=== PATIENT | female | born 1975 | race Caucasian/White ===

== ENCOUNTER → 2017-02-01 | Outpatient (CLI) | payer BC ==
[~2017-02-01] MED LIST: CITA20TA4 PO; GLC/500 PO; HYDR-4079 PO; HYDR1CAP85 PO; LOSA1TAB PO; NXM/40 PO; ONDA4TAB10 SL
[2017-02-03 00:33] LABS: URCREATININE 116.3 MG/DL (>/= 20)
== END | disposition home or self-care (01) ==
LOC: C.LABPBG 15:49
PROVIDERS: ATTEND Family Medicine
DX: Z51.81 Encounter for therapeutic drug level monitoring (principal); Z79.899 Other long term (current) drug therapy

== ENCOUNTER 2017-05-06 12:38 | Emergency (ER) | payer BC ==
[~2017-05-06] VITALS: Ht 167.6 cm; Wt 105.8 kg
[~2017-05-06 12:38] MED LIST changes: -HYDR1CAP85 PO; -ONDA4TAB10 SL
[2017-05-06 12:40] VITALS: TEMP 36.8; Ht 167.6 cm; Wt 105.8 kg
[2017-05-06] MEDS ORDERED: SODIUM CHLORIDE 0.9% 1000ML 1,000 ML IV STA (12:53)
[2017-05-06] MEDS ORDERED: ONDANSETRON INJ 2 MG/ML 2 ML VIAL IV STA (12:58)
[2017-05-06] MEDS ORDERED: KETOROLAC TROMETHAMINE 30 MG/ML VIAL IV STA (13:00)
[2017-05-06] MEDS ORDERED: hydrOXYzine HCL 25 MG TAB PO STA (13:11)
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
[2017-05-06 13:34] LABS: BASO % 0.4 %; BASO ABS # 0.05 K/uL (0-0.2); EOS % 0.8 %; HEMATOCRIT 41.1 % (37-47); IG% 0.2 %; LYMPH % 21.1 %; LYMPH ABS # 2.53 K/uL (1.2-3.4); MEAN CELL VOLUME 72.7 fL (80-100); MEAN CORPUSCULAR HEMOGLOBIN 22.3 pg (25-34); MEAN CORPUSCULAR HGB CONC 30.7 g/dl (32-36); MEAN PLATELET VOLUME 8.9 fL (7.4-10.4); MONO % 3.5 %; PLATELET COUNT 510 K/uL (130-400); RED BLOOD COUNT 5.65 M/uL (4.2-5.4); WHITE BLOOD COUNT 11.99 K/uL (4.8-10.8)
[2017-05-06 13:45] LABS: PREG INTERNAL NEGATIVE QC NEG CLEAR BACKGROUND; PREG INTERNAL POSITIVE QC POS CONTROL LINE
[2017-05-06 13:47] LABS: URINE APPEARANCE CLEAR (CLEAR); URINE COLOR DK YELLOW; URINE EPITHELIAL CELL AUTO >30 /lpf (0-5); URINE NITRITE NEG (NEG); URINE PH 6.5 (4.5-7.5); URINE SPECIFIC GRAVITY 1.029 (1.000-1.030); UROBILINOGEN NEG (NEG); ZZUR CULT IF INDIC CLEAN CATCH NO
[2017-05-06 13:48] LABS: MANUAL MICROSCOPIC REQUIRED? NO; REVIEW REQ? YES; URINE BILIRUBIN NEG (NEG)
[2017-05-06 13:58] LABS: ALT/SGPT 21 U/L (12-78); BLOOD UREA NITROGEN 8 mg/dl (7-18); BUN/CREATININE RATIO 9.6 (10-20); CALCIUM 9.3 mg/dl (8.5-10.1); CARBON DIOXIDE 26 mmol/L (21-32); CHLORIDE 105 mmol/L (98-107); CREATININE 0.81 mg/dl (0.60-1.20); GLUCOSE 134 mg/dl (70-99); POTASSIUM 3.9 mmol/L (3.5-5.1); SODIUM 137 mmol/L (136-145)
--- NOTE | 2017-05-06 14:02 | DIAGNOSTIC IMAGING REPORT ---
PA CHEST RADIOGRAPH AND UPRIGHT AND SUPINE AP RADIOGRAPHS OF THE ABDOMEN CLINICAL HISTORY: Abdominal pain and vomiting. COMPARISON STUDY: Right upper quadrant ultrasound September 07, 2016. FINDINGS: Lung volumes are normal. No consolidation is identified. No pneumothorax or pleural effusion is present. Cardiac size is normal. Mediastinal contours are normal. There is no evidence of pulmonary edema. There is no free air. There are cholecystectomy clips. Bowel gas pattern is normal. IMPRESSION: 1. No free air or evidence of bowel obstruction. 2. No acute cardiopulmonary findings. Electronically signed by: Justino Gutierrez M.D. 05/06/2017 2:01 PM Dictated Date/Time: 05/06/2017 2:00 PM
[2017-05-06 14:03] LABS: COMPLETE YES; STOMATOCYTE 1+
[2017-05-06 14:09] LABS: ALKALINE PHOSPHATASE 63 U/L (45-117); AST/SGOT 22 U/L (15-37); THYROID STIMULATING HORMONE 0.726 uIu/ml (0.300-4.500)
[2017-05-06] MEDS ORDERED: PROCHLORPERAZINE 5 MG/ML 2 ML VIAL IV STA (14:15)
[2017-05-06] MEDS ORDERED: ONDA4TAB10 SL (14:21)
[2017-05-06] MEDS ORDERED: HYDR1CAP85 PO (14:21)
[2017-05-06 15:15] VITALS: BP 169/74; PULSE 70; O2SAT 97
== END 2017-05-06 16:00 | disposition home or self-care (01) ==
LOC: C.EDB 12:40 → C.EDA 16:00
DX: R10.84 Generalized abdominal pain (principal); R11.2 Nausea with vomiting, unspecified; E11.9 Type 2 diabetes mellitus without complications; I10 Essential (primary) hypertension; Z83.3 Family history of diabetes mellitus; Z82.49 Family history of ischemic heart disease and other diseases of the circulatory system; Z82.0 Family history of epilepsy and other diseases of the nervous system; F17.200 Nicotine dependence, unspecified, uncomplicated

== ENCOUNTER 2017-12-13 16:08 | Inpatient (IN) | payer BC ==
[~2017-12-13] VITALS: Ht 167.6 cm; Wt 68.7 kg
[2017-12-13] MEDS ORDERED: MoRPHine SULFATE 2 MG/ML CARP IV STA (16:22)
[2017-12-13] MEDS ORDERED: ONDANSETRON INJ 2 MG/ML 2 ML VIAL IV STA (16:22)
--- NOTE | 2017-12-13 16:22 | EMERGENCY ROOM VISIT NOTE ---
History First contact with patient: 16:14 Chief Complaint: LEG PAIN,LEG INJURY Stated Complaint: BACK PAIN, R LEG SWELLING History of Present Illness The patient is a 42 year old female who presents to the Emergency Room with complaints of left ankle swelling/redness. This started 1 week ago. She thought she twisted her ankle and wrapped it for a couple of days. Then she went to replaced by [facility] and they were concerned about DVT; they started her on Elaquis. The next day she went to [place] and had an USG but did not get the results. She followed up with her PCP yesterday and she was concern about cellulitis. She was started on clindamycin and the area was marked. This morning she did notice that the redness extended past the marked area. The pain has also been a lot worse. She reports having had a fall yesterday due to the pain. She does have history of diabetes- uncontrolled; does not take any meds. Denies fevers, chills nausea, vomiting. Review of Systems See above for pertinent positives & negatives. A total of 10 systems reviewed and were otherwise negative. Past Medical/Surgical History Medical Problems: (1) Cellulitis and abscess of left lower extremity (2) Diabetes (3) Hypertension Surgical Problems: (1) History of section (2) History of cholecystectomy Family History Cancer Diabetes mellitus Hypertension Kidney disease Kidney stones Seizures Social History Smoking Status: Current Every Day Smoker Housing Status: lives with family Occupation Status: employed Current/Historical Medications Scheduled Clindamycin Hcl (Cleocin), 300 MG PO QID Physical Exam Vital Signs Date Time Temp Pulse Resp B/P (MAP) Pulse Ox O2 Delivery O2 Flow Rate FiO2 12/13/17 19:36 118 24 128/64 97 Room Air 12/13/17 16:17 37.1 106 20 157/92 97 Room Air Physical Exam GENERAL: Patient is awake alert in mild distress due to pain EYES: The conjunctivae are clear. The pupils are round and reactive. EARS, NOSE, MOUTH AND THROAT: Mucous membranes are moist. NECK: The neck is nontender and supple. RESPIRATORY: Normal respiratory effort is noted there is no evidence of wheezing rhonchi or rales CARDIOVASCULAR: Slightly tachycardic, regular rhythm, s1, s2 present, no murmurs. GASTROINTESTINAL: The abdomen is soft. Bowel sounds are present in all quadrants. Abdomen is nontender PELVIS: The Pelvis is stable. No tenderness to palpation is noted. BACK: No midline tenderness or or step-off noted range of motion in flexion extension as well as rotation no signs of muscle spasm noted MUSCULOSKELETAL/EXTREMITIES: The left foot and ankle are swollen. There is erythema, warmth and tenderness. There is an abscess over the lateral malleolus. SKIN: There is no obvious evidence of any rash. There are no petechiae, pallor or cyanosis noted. NEUROLOGIC: Patient is awake alert and oriented x3 Medical Decision & Procedures Laboratory Results 12/13/17 16:50 Red Blood Count 4.82, Mean Corpuscular Volume 77.0, Mean Corpuscular Hemoglobin 26.3, Mean Corpuscular Hemoglobin Concent 34.2, Mean Platelet Volume 9.0, Neutrophils (%) (Auto) 78.7, Lymphocytes (%) (Auto) 14.5, Monocytes (%) (Auto) 5.5, Eosinophils (%) (Auto) 0.2, Basophils (%) (Auto) 0.3, Neutrophils # (Auto) 12.54, Lymphocytes # (Auto) 2.30, Monocytes # (Auto) 0.87, Eosinophils # (Auto) 0.03, Basophils # (Auto) 0.04 12/13/17 16:50 Test 12/13/17 16:50 12/13/17 17:16 White Blood Count 15.90 K/uL (4.8-10.8) Red Blood Count 4.82 M/uL (4.2-5.4) Hemoglobin 12.7 g/dL (12.0-16.0) Hematocrit 37.1 % (37-47) Mean Corpuscular Volume 77.0 fL (80-100) Mean Corpuscular Hemoglobin 26.3 pg (25-34) Mean Corpuscular Hemoglobin Concent 34.2 g/dl (32-36) Platelet Count 456 K/uL (130-400) Mean Platelet Volume 9.0 fL (7.4-10.4) Neutrophils (%) (Auto) 78.7 % Lymphocytes (%) (Auto) 14.5 % Monocytes (%) (Auto) 5.5 % Eosinophils (%) (Auto) 0.2 % Basophils (%) (Auto) 0.3 % Neutrophils # (Auto) 12.54 K/uL (1.4-6.5) Lymphocytes # (Auto) 2.30 K/uL (1.2-3.4) Monocytes # (Auto) 0.87 K/uL (0.11-0.59) Eosinophils # (Auto) 0.03 K/uL (0-0.5) Basophils # (Auto) 0.04 K/uL (0-0.2) RDW Standard Deviation 46.1 fL (36.4-46.3) RDW Coefficient of Variation 16.5 % (11.5-14.5) Immature Granulocyte % (Auto) 0.8 % Immature Granulocyte # (Auto) 0.12 K/uL (0.00-0.02) Erythrocyte Sedimentation Rate > 90 mm/hr (0-21) Anion Gap 10.0 mmol/L (3-11) Est Creatinine Clear Calc Drug Dose 185.5 ml/min Estimated GFR () 130.1 Estimated GFR (Non- 112.3 BUN/Creatinine Ratio 10.5 (10-20) Estimated Average Glucose 209 mg/dl Hemoglobin A1c 8.9 % (4.5-5.6) Calcium Level 9.2 mg/dl (8.5-10.1) Total Bilirubin 0.4 mg/dl (0.2-1) Direct Bilirubin mg/dl (0-0.2) Aspartate Amino Transf (AST/SGOT) 24 U/L (15-37) Alanine Aminotransferase (ALT/SGPT) 27 U/L (12-78) Alkaline Phosphatase 108 U/L (45-117) Troponin I < 0.015 ng/ml (0-0.045) C-Reactive Protein 22.70 mg/dl (0-0.29) Total Protein 8.8 gm/dl (6.4-8.2) Albumin 2.4 gm/dl (3.4-5.0) Globulin 6.4 gm/dl (2.5-4.0) Albumin/Globulin Ratio 0.4 (0.9-2) Prothrombin Time 10.6 SECONDS (9.0-12.0) Prothromb Time International Ratio 1.0 (0.9-1.1) Activated Partial Thromboplast Time 29.0 SECONDS (21.0-31.0) Partial Thromboplastin Ratio 1.1 Lactic Acid Level 1.2 mmol/L (0.4-2.0) Medications Administered Medications (Trade) Dose Ordered Sig/Kodi Route Start Time Stop Time Status Last Admin Dose Admin Morphine Sulfate (MoRPHine SULFATE INJ) 2 mg NOW STAT IV 12/13/17 16:22 12/13/17 16:24 DC 12/13/17 17:09 2 MG Ondansetron HCl (Zofran Inj) 4 mg NOW STAT IV 12/13/17 16:22 12/13/17 16:24 DC 12/13/17 17:09 4 MG Vancomycin HCl 1500 mg/Sodium Chloride 280 ml @ 125 mls/hr NOW STAT IV 12/13/17 17:03 12/13/17 19:17 DC 12/13/17 18:26 125 MLS/HR Cefepime HCl 1000 mg/Dextrose 111 ml @ 200 mls/hr NOW IV 12/13/17 17:30 12/13/17 22:03 DC 12/13/17 18:26 200 MLS/HR Hydromorphone HCl (Dilaudid Inj) 1 mg NOW STAT IV 12/13/17 17:27 12/13/17 17:28 DC 12/13/17 17:32 1 MG Lidocaine HCl (Buffered Lidocaine 1% Inj) 20 ml STK-MED ONCE INFIL 12/13/17 17:31 12/13/17 17:32 DC 12/13/17 17:31 20 ML Sodium Chloride 1,000 ml @ 125 mls/hr Q8H IV 12/13/17 18:45 12/13/17 22:08 DC 12/13/17 19:00 125 MLS/HR Hydromorphone HCl (Dilaudid Inj) 1 mg NOW STAT IV 12/13/17 19:10 12/13/17 19:13 DC 12/13/17 19:45 1 MG Tramadol HCl (Ultram Tab) 50 mg Q4H PRN PO 12/13/17 20:45 01/12/18 20:44 12/14/17 05:50 50 MG Acetaminophen (Tylenol Tab) 650 mg Q4H PRN PO 12/13/17 20:45 01/12/18 20:44 12/13/17 23:52 650 MG Procedure Incision and drainage of left lower ext abscess: Verbal consent obtained from patient; risks and benefits explained. The area was prepared and draped in a sterile fashion. The site was anesthetized with 1 % lidocaine. A linear incision with an 11 blade was made and the purulent material expressed. The abscess was explored thoroughly and sequestered pockets were opened. Bleeding was minimal. The wound was packed with 1/4 inch packing tape. Extra lidocaine was injected due to patient reporting pain. The patient tolerated the procedure well without complications. ED Course 1615 Patient was evaluated in B4. A complete history and physical was performed 1630 Morphine 2 mg and Zofran 4 mg were ordered 1640 Blood work and imaging ordered. 1700 IV Vancomycin 1500 mg and IV Cefepime 1000 mg ordered 1730 Discussed with patient about incision and drainage. [id number] I&D performed 193 Case discussed with [facility] hospitalist 1944 1 mg of Dilaudid given Medical Decision This is a 42 y/o F w/ a h/o if uncontrolled DM (not taking any meds), who presents with worsening left ankle swelling. She is noted to have left lower ext cellulitis and an abscess over the left lateral malleolus. CBC was remarkable for a WBC count of 15.9. CMP was remarkable for Na of 129. HbA1c is 8.9. Esr is >90 and CRP 22. X-ray of the foot did not reveal evidence of osteomyelitis. The patient was given a 1.5 gm of Vancomycin and 1 gm of Cefepime. The patient underwent I&D of the abscess (See procedure note above). She was started on IV fluids. Her pain was managed with Dilaudid and Morphine. Due to patient failing outpatient management with clindamycin and concern for osteo, the patient was recommended admission. Her case was discussed with the hospitalist and they will evaluate the patient further. Impression Primary Impression: Cellulitis and abscess of left lower extremity Additional Impressions: Uncontrolled diabetes mellitus Hyponatremia Departure Information Referrals Lydia Leon DO (PCP) Patient Instructions My [facility] Problem Qualifiers
[2017-12-13] MEDS ORDERED: VANCOMYCIN INJ 1,000 MG in SODIUM CHLORIDE 0.9% 250ML 250 ML IV STA (16:31)
[2017-12-13] MEDS ORDERED: VANCOMYCIN CONSULT ACTIVE PRN ×3 (16:45→20:45)
[2017-12-13] MEDS ORDERED: VANCOMYCIN INJ 1,500 MG in SODIUM CHLORIDE 0.9% 250ML 250 ML IV STA (17:03)
[2017-12-13 17:05] LABS: BASO % 0.3 %; BASO ABS # 0.04 K/uL (0-0.2); EOS % 0.2 %; EOS ABS # 0.03 K/uL (0-0.5); HEMATOCRIT 37.1 % (37-47); HEMOGLOBIN 12.7 g/dL (12.0-16.0); IG# 0.12 K/uL (0.00-0.02); LYMPH % 14.5 %; MEAN CORPUSCULAR HEMOGLOBIN 26.3 pg (25-34); MEAN CORPUSCULAR HGB CONC 34.2 g/dl (32-36); MONO % 5.5 %; MONO ABS # 0.87 K/uL (0.11-0.59); NEUT % 78.7 %; NEUT ABS # 12.54 K/uL (1.4-6.5); PLATELET COUNT 456 K/uL (130-400); RED CELL DISTRIBUTION WIDTH CV 16.5 % (11.5-14.5); RED CELL DISTRIBUTION WIDTH SD 46.1 fL (36.4-46.3)
[2017-12-13] MEDS ORDERED: CEFTAZIDIME IV SCH (17:15)
[2017-12-13] MEDS ORDERED: DEXTROSE 5% IV SCH (17:15)
[2017-12-13] MEDS ORDERED: HYDROmorphone INJ 1 MG/ML SYR IV STA ×2 (17:27→19:10)
[2017-12-13] MEDS ORDERED: CEFEPIME IV 1,000 MG in DEXTROSE 5% 100ML 100 ML IV SCH (17:30)
[2017-12-13] MEDS ORDERED: XYLOCAINE 1%/SOD BICARB 20 ML VIAL INFIL ONE (17:31)
[2017-12-13 17:45] LABS: ALBUMIN 2.4 gm/dl (3.4-5.0); ALKALINE PHOSPHATASE 108 U/L (45-117); ALT/SGPT 27 U/L (12-78); AST/SGOT 24 U/L (15-37); BLOOD UREA NITROGEN 6 mg/dl (7-18); CALCIUM 9.2 mg/dl (8.5-10.1); CARBON DIOXIDE 25 mmol/L (21-32); CREATININE 0.59 mg/dl (0.60-1.20); GLUCOSE 159 mg/dl (70-99); POTASSIUM 3.5 mmol/L (3.5-5.1); SODIUM 129 mmol/L (136-145); TOTAL PROTEIN 8.8 gm/dl (6.4-8.2)
[2017-12-13] MEDS ORDERED: CLIN300C2 PO (18:13)
[2017-12-13] MEDS ORDERED: SODIUM CHLORIDE 0.9% 1000ML 1,000 ML IV SCH (18:45)
--- NOTE | 2017-12-13 18:48 | DIAGNOSTIC IMAGING REPORT ---
L ANKLE MIN 3 VIEWS ROUTINE CLINICAL HISTORY: left ankle abscess, r/o osteo COMPARISON: None. DISCUSSION: No fractures or dislocations are visualized. There is Achilles insertional and plantar calcaneal spurring. There is marked lateral soft tissue swelling. There are no destructive lesions to indicate osteomyelitis. IMPRESSION: 1. No evidence of fracture 2. Lateral soft tissue swelling 3. No conventional radiographic evidence of osteomyelitis Electronically signed by: Martinez Lopez M.D. 12/13/2017 6:47 PM Dictated Date/Time: 12/13/2017 6:46 PM
[2017-12-13] MEDS ORDERED: ZOLPIDEM TARTRATE 5 MG TAB PO PRN (20:45)
[2017-12-13] MEDS ORDERED: POLYETHYLENE (MIRALAX) 17 GM PACK PO PRN (20:45)
[2017-12-13] MEDS ORDERED: MAGNESIUM HYDROXIDE SUSP 30 ML UDC PO PRN (20:45)
[2017-12-13] MEDS ORDERED: ONDANSETRON INJ 2 MG/ML 2 ML VIAL IV PRN (20:45)
[2017-12-13] MEDS ORDERED: ALUMINUM/MAGNESIUM/SIMETH (MAALOX MAX) 30 ML UDC PO PRN (20:45)
[2017-12-13 21:15] VITALS: O2SAT 94; BMI 39.6; BMI 53.4
--- NOTE | 2017-12-13 21:25 | History and Physical ---
History & Physical Date & Time of Service: Dec 13, 2017 at 21:24 Chief Complaint: Back Pain, R Leg Swelling Primary Care Physician: Lydia Leon DO History of Present Illness Source: patient 42 y/o F Hx DM, obese, HTN, smoker - presents with swelling and pain of her LLE. The pt was placed on Clindamycin one day prior. She reports worsening pain and extension of the infection. She had a small abscess over her lateral malleolus which was drained in the ER. The pt states that she has been noncompliant with any medications for several months including those prescribed for diabetes. Past Medical/Surgical History 1) DM II 2) Obese 3) Smoker 4) HTN Family History Cancer Diabetes mellitus Hypertension Kidney disease Kidney stones Seizures Social History Smokes one pack daily - denies any alcohol or drug use Smoking Status: Current Every Day Smoker Occupational Status: employed Allergies Coded Allergies: Penicillins (Verified Allergy, Unknown, Hives, 12/13/17) Home Medications Scheduled Clindamycin Hcl (Cleocin), 300 MG PO QID Review of Systems Constitutional: No fever, No chills, No sweats Eyes: No worsening of vision ENT: No hearing loss, No unusual epistaxis, No nasal symptoms Respiratory: No cough, No sputum, No wheezing Cardiovascular: No chest pain, No PND Abdomen: No pain, No nausea, No vomiting Musculoskeletal: + problem reported (Pain and swelling of LLE ) Genitourinary - Female: No dysuria, No urinary frequency, No urinary urgency Neurologic: No memory loss, No paralysis, No weakness Psychiatric: No depression symptoms Endocrine: No fatigue Hematologic / Lymphatic: No abnormal bleeding/bruising Integumentary: + rash (erythema , abscess LLE) Allergic / Immunologic: No environmental allergies Physical Exam Vital Signs Date Time Temp Pulse Resp B/P (MAP) Pulse Ox O2 Delivery O2 Flow Rate FiO2 12/13/17 21:22 108 16 128/66 94 Room Air 12/13/17 19:36 118 24 128/64 97 Room Air 12/13/17 16:17 37.1 106 20 157/92 97 Room Air General Appearance: WD/WN, no apparent distress, + obese Head: normocephalic Eyes: normal inspection ENT: normal ENT inspection, pharynx normal Neck: supple, no JVD Respiratory/Chest: chest non-tender, lungs clear, normal breath sounds Cardiovascular: regular rate, rhythm, no edema, no gallop Abdomen/GI: normal bowel sounds, non tender, soft Back: normal inspection, no CVA tenderness Extremities/Musculoskelatal: + pertinent finding (Erythema, warmth , lat open area - erythema extends to mid johnson) 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, no motor/sensory deficits, alert, oriented x 3 Skin: + pertinent finding (Cellulitis LLE as above) Diagnostics Laboratory Results Results Past 24 Hours Test 12/13/17 16:50 12/13/17 17:16 Range/Units White Blood Count 15.90 4.8-10.8 K/uL Red Blood Count 4.82 4.2-5.4 M/uL Hemoglobin 12.7 12.0-16.0 g/dL Hematocrit 37.1 37-47 % Mean Corpuscular Volume 77.0 80-100 fL Mean Corpuscular Hemoglobin 26.3 25-34 pg Mean Corpuscular Hemoglobin Concent 34.2 32-36 g/dl Platelet Count 456 130-400 K/uL Mean Platelet Volume 9.0 7.4-10.4 fL Neutrophils (%) (Auto) 78.7 % Lymphocytes (%) (Auto) 14.5 % Monocytes (%) (Auto) 5.5 % Eosinophils (%) (Auto) 0.2 % Basophils (%) (Auto) 0.3 % Neutrophils # (Auto) 12.54 1.4-6.5 K/uL Lymphocytes # (Auto) 2.30 1.2-3.4 K/uL Monocytes # (Auto) 0.87 0.11-0.59 K/uL Eosinophils # (Auto) 0.03 0-0.5 K/uL Basophils # (Auto) 0.04 0-0.2 K/uL RDW Standard Deviation 46.1 36.4-46.3 fL RDW Coefficient of Variation 16.5 11.5-14.5 % Immature Granulocyte % (Auto) 0.8 % Immature Granulocyte # (Auto) 0.12 0.00-0.02 K/uL Erythrocyte Sedimentation Rate > 90 0-21 mm/hr Sodium Level 129 136-145 mmol/L Potassium Level 3.5 3.5-5.1 mmol/L Chloride Level 94 98-107 mmol/L Carbon Dioxide Level 25 21-32 mmol/L Anion Gap 10.0 3-11 mmol/L Blood Urea Nitrogen 6 7-18 mg/dl Creatinine 0.59 0.60-1.20 mg/dl Est Creatinine Clear Calc Drug Dose 185.5 ml/min Estimated GFR () 130.1 Estimated GFR (Non- 112.3 BUN/Creatinine Ratio 10.5 10-20 Random Glucose 159 70-99 mg/dl Calcium Level 9.2 8.5-10.1 mg/dl Total Bilirubin 0.4 0.2-1 mg/dl Direct Bilirubin 0-0.2 mg/dl Aspartate Amino Transf (AST/SGOT) 24 15-37 U/L Alanine Aminotransferase (ALT/SGPT) 27 12-78 U/L Alkaline Phosphatase 108 45-117 U/L Troponin I < 0.015 0-0.045 ng/ml C-Reactive Protein 22.70 0-0.29 mg/dl Total Protein 8.8 6.4-8.2 gm/dl Albumin 2.4 3.4-5.0 gm/dl Globulin 6.4 2.5-4.0 gm/dl Albumin/Globulin Ratio 0.4 0.9-2 Prothrombin Time 10.6 9.0-12.0 SECONDS Prothromb Time International Ratio 1.0 0.9-1.1 Activated Partial Thromboplast Time 29.0 21.0-31.0 SECONDS Partial Thromboplastin Ratio 1.1 Lactic Acid Level 1.2 0.4-2.0 mmol/L Microbiology Results 12/13/17 Blood Culture, Received Pending 12/13/17 Blood Culture, Received Pending 12/13/17 Gram Stain, Received Pending 12/13/17 Wound Culture, Received Pending Diagnostic Radiology CXR: 1. No evidence of fracture 2. Lateral soft tissue swelling 3. No conventional radiographic evidence of osteomyelitis Impression Assessment and Plan 42 y/o F Hx DM, obese, HTN, smoker - presents with swelling and pain of her LLE. The pt was placed on Clindamycin one day prior. She reports worsening pain and extension of the infection. She had a small abscess over her lateral malleolus which was drained in the ER. The pt states that she has been noncompliant with any medications for several months including those prescribed for diabetes. 1) Cellulitis - placed on ceftriaxone and Vanc pending culture results 2) DM - placed on SS - can calculate requirements - advised on importance of medical compliance 3) HTN - Mildly elvated on admission - will trend for now 4) Advised on smoking cessation Full code - Heparin prophylaxis Total time for this admit including review of labs, meds, imaging, records - discussion with pt and ER attending - 35 min Resuscitation Status VTE Prophylaxis Will order VTE Prophylaxis: Yes
[2017-12-13 21:48] VITALS: O2SAT 94
[2017-12-13] MEDS: VANCOMYCIN INJ 2,000 MG in SODIUM CHLORIDE 0.9% 500ML 500 ML IV SCH (22:44)
[2017-12-13] MEDS: ACETAMINOPHEN 325 MG TAB PO PRN (23:52)
[2017-12-13] MEDS: INSULIN ASPART 100 UNITS/ML 3 ML PEN SC SCH (23:59)
[2017-12-14] MEDS: INSULIN ASPART 100 UNITS/ML 3 ML PEN SC SCH ×5 (00:08→21:23)
[2017-12-14 00:30] VITALS: BP 145/85; PULSE 102; TEMP 36.9; O2SAT 95
[2017-12-14] MEDS: TRAMADOL HCL 50 MG TAB PO PRN (05:50)
[2017-12-14] MEDS: HEPARIN SOD 5000 UNIT/0.5 ML CARP SQ SCH ×4 (05:56→21:23)
[2017-12-14] MEDS: CEFTRIAXONE SOD INJ 1 GM in DEXTROSE 5% ADD-VANTAGE 50ML 50 ML IV SCH (06:31)
[2017-12-14 07:16] VITALS: BP 141/84; PULSE 93; TEMP 37; O2SAT 95
[2017-12-14 07:25] LABS: HEMOGLOBIN A1C 8.9 % (4.5-5.6)
[2017-12-14] MEDS: VANCOMYCIN INJ 2,000 MG in SODIUM CHLORIDE 0.9% 500ML 500 ML IV SCH ×2 (07:36→14:00)
[2017-12-14] MEDS: NICOTINE 21 MG/24 HR TDSY TD SCH (07:37)
[2017-12-14] MEDS ORDERED: HydrALAZINE HCL 20 MG/ML VIAL IV. PRN (13:00)
--- NOTE | 2017-12-14 13:02 | Hospitalist Progress Note ---
Hospitalist Progress Note Date of Service Dec 14, 2017. Subjective Pt evaluation today including: conversation w/ patient, physical exam, lab review, review of inpatient medication list Voiding: no voiding problems Patient resting in bed. Very drowsy. Will periodically open eyes but then quickly falls back to sleep. Discussed w/ RN- ongoing all morning. Only given Tramadol at 0500. Denies any pain. Complete ROS cannot be completed due to drowsiness. Medications Current Inpatient Medications Medications (Trade) Dose Ordered Sig/Kodi Route Start Time Stop Time Status Last Admin Dose Admin Ceftriaxone Sodium 1 gm/ Dextrose 50 ml @ 100 mls/hr Q24H IV 12/14/17 05:00 12/24/17 04:59 12/14/17 06:31 100 MLS/HR Vancomycin HCl 2000 mg/Sodium Chloride 540 ml @ 200 mls/hr Q8H IV 12/13/17 22:00 12/23/17 21:59 12/14/17 07:36 200 MLS/HR Miscellaneous Information (Consult) 1 ea UD PRN N/A 12/13/17 20:45 01/12/18 20:44 Nicotine (Nicoderm Cq 21MG Patch) 1 patch QAM TD 12/14/17 08:00 01/13/18 08:59 12/14/17 07:37 1 PATCH Miscellaneous (Remove Nicoderm Patch) 1 ea HS N/A 12/14/17 22:00 01/13/18 21:59 Tramadol HCl (Ultram Tab) 50 mg Q4H PRN PO 12/13/17 20:45 01/12/18 20:44 12/14/17 05:50 50 MG Insulin Aspart (novoLOG ASPART) SLIDING SCALE G... ACHS SC 12/13/17 21:00 01/12/18 20:59 12/13/17 23:59 1 UNITS Heparin Sodium (Porcine) (Heparin Sq 5000 Unit/0.5ml) 5,000 unit Q8H SQ 12/13/17 22:00 01/12/18 21:59 12/14/17 05:56 5,000 UNIT Acetaminophen (Tylenol Tab) 650 mg Q4H PRN PO 12/13/17 20:45 01/12/18 20:44 12/13/17 23:52 650 MG Al Hydrox/Mg Hydrox/Simethicone (Maalox Max Susp) 15 ml Q4H PRN PO 12/13/17 20:45 01/12/18 20:44 Magnesium Hydroxide (Milk Of Magnesia Susp) 30 ml Q6H PRN PO 12/13/17 20:45 01/12/18 20:44 Polyethylene (Miralax Powder Packet) 17 gm DAILY PRN PO 12/13/17 20:45 01/12/18 20:44 Zolpidem Tartrate (Ambien Tab) 5 mg HSZ PRN PO 12/13/17 20:45 01/12/18 20:44 Ondansetron HCl (Zofran Inj) 4 mg Q6H PRN IV 12/13/17 20:45 01/12/18 20:44 Objective Vital Signs Date Time Temp Pulse Resp B/P (MAP) Pulse Ox O2 Delivery O2 Flow Rate FiO2 12/14/17 08:00 Room Air 12/14/17 07:16 37.0 93 16 141/84 (103) 95 Room Air 12/14/17 00:32 Room Air 12/14/17 00:30 36.9 102 20 145/85 (105) 95 Room Air 12/13/17 21:48 108 16 128/66 94 12/13/17 21:22 108 16 128/66 94 Room Air 12/13/17 21:15 94 Room Air 12/13/17 19:36 118 24 128/64 97 Room Air 12/13/17 16:17 37.1 106 20 157/92 97 Room Air Physical Exam General Appearance: no apparent distress, + obese Eyes: + pertinent finding (pinpoint pupils bilaterally ) ENT: hearing grossly normal Neck: supple Respiratory/Chest: lungs clear, no respiratory distress, no accessory muscle use Cardiovascular: regular rate, rhythm Abdomen: normal bowel sounds, non tender, soft Extremities: no pedal edema, + pertinent finding (Erythema, warmth, open wound/ packaging to LLE lateral malleolus area ) Neurologic/Psychiatric: alert, + pertinent finding (drowsy ) Skin: normal color, warm/dry, no rash Laboratory Results Last 24 Hours Test 12/13/17 16:50 12/13/17 17:16 12/13/17 22:43 12/13/17 23:46 White Blood Count 15.90 K/uL Red Blood Count 4.82 M/uL Hemoglobin 12.7 g/dL Hematocrit 37.1 % Mean Corpuscular Volume 77.0 fL Mean Corpuscular Hemoglobin 26.3 pg Mean Corpuscular Hemoglobin Concent 34.2 g/dl Platelet Count 456 K/uL Mean Platelet Volume 9.0 fL Neutrophils (%) (Auto) 78.7 % Lymphocytes (%) (Auto) 14.5 % Monocytes (%) (Auto) 5.5 % Eosinophils (%) (Auto) 0.2 % Basophils (%) (Auto) 0.3 % Neutrophils # (Auto) 12.54 K/uL Lymphocytes # (Auto) 2.30 K/uL Monocytes # (Auto) 0.87 K/uL Eosinophils # (Auto) 0.03 K/uL Basophils # (Auto) 0.04 K/uL RDW Standard Deviation 46.1 fL RDW Coefficient of Variation 16.5 % Immature Granulocyte % (Auto) 0.8 % Immature Granulocyte # (Auto) 0.12 K/uL Erythrocyte Sedimentation Rate > 90 mm/hr Sodium Level 129 mmol/L Potassium Level 3.5 mmol/L Chloride Level 94 mmol/L Carbon Dioxide Level 25 mmol/L Anion Gap 10.0 mmol/L Blood Urea Nitrogen 6 mg/dl Creatinine 0.59 mg/dl Est Creatinine Clear Calc Drug Dose 185.5 ml/min Estimated GFR () 130.1 Estimated GFR (Non- 112.3 BUN/Creatinine Ratio 10.5 Random Glucose 159 mg/dl Estimated Average Glucose 209 mg/dl Hemoglobin A1c 8.9 % Calcium Level 9.2 mg/dl Total Bilirubin 0.4 mg/dl Direct Bilirubin mg/dl Aspartate Amino Transf (AST/SGOT) 24 U/L Alanine Aminotransferase (ALT/SGPT) 27 U/L Alkaline Phosphatase 108 U/L Troponin I < 0.015 ng/ml C-Reactive Protein 22.70 mg/dl Total Protein 8.8 gm/dl Albumin 2.4 gm/dl Globulin 6.4 gm/dl Albumin/Globulin Ratio 0.4 Prothrombin Time 10.6 SECONDS Prothromb Time International Ratio 1.0 Activated Partial Thromboplast Time 29.0 SECONDS Partial Thromboplastin Ratio 1.1 Lactic Acid Level 1.2 mmol/L Bedside Glucose 175 mg/dl 166 mg/dl Test 12/14/17 00:00 12/14/17 07:24 12/14/17 11:26 Urine Color YELLOW Urine Appearance CLOUDY Urine pH 6.5 Urine Specific [place] 1.015 Urine Protein TRACE Urine Glucose (UA) NEG Urine Ketones 1+ Urine Occult Blood NEG Urine Nitrite NEG Urine Bilirubin NEG Urine Urobilinogen NEG Urine Leukocyte Esterase NEG Urine WBC (Auto) 1-5 /hpf Urine RBC (Auto) 0-4 /hpf Urine Hyaline Casts (Auto) 1-5 /lpf Urine Epithelial Cells (Auto) >30 /lpf Urine Bacteria (Auto) 1+ Urine Crystals AMM BIURATE Bedside Glucose 157 mg/dl 142 mg/dl Assessment and Plan 42 y/o F Hx DM, obese, HTN, smoker - presents with swelling and pain of her LLE. The pt was placed on Clindamycin one day prior. She reports worsening pain and extension of the infection. She had a small abscess over her lateral malleolus which was drained in the ER. The pt states that she has been noncompliant with any medications for several months including those prescribed for diabetes. LLE cellulitis: - Admit to med/surg - Tylenol + Motrin PRN for pain management; Tramadol q4 hrs PRN for severe pain - IV Vancomycin + Rocephin - Wound cultures growing strep B, sensitives pending - BCx pending - Ankle x-ray- no evidence of osteo - Wound care consulted, appreciate recommendations Abnormal UA: IV antibiotics as above for coverage pending UCx T2DM- hgbA1c 8.9%: - BSG ACHS and ISS - life skills educator consulted Drowsiness, pinpoint pupils: - Only pain medication given today was Tramadol - Will check urine drug screen - Continue to monitor, supportive care, limit narcotics HTN, ?secondary to situational: - Continue to monitor - IV Hydralazine PRN Tobacco abuse: - Nicotine patch - Smoking cessation counselling DVT prophylaxis: Heparin SQ TID Code status: LEVEL I, FULL Dispo: Discharge to home once medically stable
[2017-12-14 14:55] VITALS: Ht 167.6 cm; Wt 68.7 kg
--- NOTE | 2017-12-14 15:13 | Pharmacy Progress Note ---
Pharmacy Abx Initial Consult Date of Service Dec 14, 2017. Pharmacy Dosing Scope Date of Consult: 12/13/17 Consultation requested by: Dr. Jonas Pharmacy is consulted to initiate Vancomycin IV dosing therapy, order appropriate labs and adjust drug dose/frequency. Subjective The patient is a 42 year old female admitted on Dec 13, 2017 at 20:46 with LLE cellulitis. PMH significant for Type 2 DM, Smoker, trial of PO Clindamycin. Objective Height (Feet): 5 Height (Inches): 6.00 Weight (Kilograms): 111.300 Vital Signs (Past 12Hrs) Vital Signs Past 12 Hours Date Time Temp Pulse Resp B/P (MAP) Pulse Ox O2 Delivery O2 Flow Rate FiO2 12/14/17 08:00 Room Air 12/14/17 07:16 37.0 93 16 141/84 (103) 95 Room Air Lab Results (24Hrs) Laboratory Tests (24 Hours) Test 12/13/17 16:50 12/13/17 17:16 C-Reactive Protein 22.70 mg/dl (0-0.29) H Erythrocyte Sedimentation Rate > 90 mm/hr (0-21) H White Blood Count 15.90 K/uL (4.8-10.8) H Red Blood Count 4.82 M/uL (4.2-5.4) Hemoglobin 12.7 g/dL (12.0-16.0) Hematocrit 37.1 % (37-47) Mean Corpuscular Volume 77.0 fL (80-100) L Mean Corpuscular Hemoglobin 26.3 pg (25-34) Mean Corpuscular Hemoglobin Concent 34.2 g/dl (32-36) Platelet Count 456 K/uL (130-400) H Mean Platelet Volume 9.0 fL (7.4-10.4) Neutrophils (%) (Auto) 78.7 % Lymphocytes (%) (Auto) 14.5 % Monocytes (%) (Auto) 5.5 % Eosinophils (%) (Auto) 0.2 % Basophils (%) (Auto) 0.3 % Neutrophils # (Auto) 12.54 K/uL (1.4-6.5) H Lymphocytes # (Auto) 2.30 K/uL (1.2-3.4) Monocytes # (Auto) 0.87 K/uL (0.11-0.59) H Eosinophils # (Auto) 0.03 K/uL (0-0.5) Basophils # (Auto) 0.04 K/uL (0-0.2) Lactic Acid Level 1.2 mmol/L (0.4-2.0) Item Value Date Time Creatinine 0.59 mg/dl L 12/13/17 1650 Est Creatinine Clear Calc Drug Dose 185.5 ml/min 12/13/17 1650 Vancomycin Level Trough 20.4 mcg/ml 12/14/17 1347 Micro Results Date/Time Source Procedure Growth Status 12/13/17 17:16 Blood Blood Culture Pending Received 12/13/17 16:50 Blood Blood Culture Pending Received 12/14/17 00:00 Nasal MRSA DNA Surveillance Screen - Final Specimen Negative for MRSA by DNA Probe Complete 12/14/17 00:00 Urine , Clean Catch Urine Culture Pending Received 12/13/17 18:45 Drainage-Deep Leg Lower Left Gram Stain - Final Resulted 12/13/17 18:45 Wound Culture - Preliminary Group B Beta Strep Resulted Risk Factors for Resistance * Antimicrobial use within the last 90 days - Clindamycin po tried as outpatient Assessment & Plan Assessment 42 year old female obese pt. Pt's weight originally recorded as 150kg when IV Vancomycin started last night by electricity trader [facility]. Today patient's weight = 111kg. Trough level drawn after patient had a total of 3 doses, but first dose in ED was not a loading dose. Pt's Vancomycin level is therapeutic at this time, so interval needs to be lengthened and dose reduced for updated weight. Plan Vancomycin for treatment of LLE Cellulitis Vancomycin IV * Loading dose: 1500 mg (10 mg/kg) x 1 in ED at 1826 yesterday then * Maintenance dose: 2000 mg IV (13.3 mg/kg) every 8 hours started at 2200 ( immediately after loading dose was run) * All dosing above based on 150kg weight. * Goal trough level for Cellulitis: 15 to 20 mcg/mL (higher goal for pt's comorbidities) * Vancomycin trough of 20.4mcg/ml is therapeutic, and pt will likely begin to accumulate, d/t obesity and not being at steady state yet. * NEW Vancomycin dose = Vancomycin 1500mg (13.5mg/kg) IV Q12H * Trough level ordered for 12/16/17 prior to 0200 dose * A less than traditional dose has been selected due to likelihood of drug accumulation in obese patient Pharmacy will continue to follow and will adjust dose/frequency as necessary. Thank you.
[2017-12-14 15:19] VITALS: BP 154/85; PULSE 102; TEMP 36.8; O2SAT 95
--- NOTE | 2017-12-14 21:04 | EMERGENCY ROOM VISIT NOTE ---
ED Visit Note First contact with patient: 16:14 Resident Physician Supervision Note: I interviewed and examined the patient. Discussed with Dr. Tobin and agree with findings and plan as documented in the note. Any exceptions or clarifications are listed here: Pt was treated with IV vancomycin and IV cefepime. An I&D was performed, culture pending. WBC, sed rate and CRP are markedly elevated. Ankle XR is negative. Pt will be evaluated by the hospitalist service for further management. I directly supervised the Dr. Tobin during the I&D of the left lateral malleolar abscess. I was immediately available throughout the procedure. Documented By: Dasia Montoya
[2017-12-14] MEDS: IBUPROFEN 200 MG TAB PO PRN (21:48)
[2017-12-14 23:14] VITALS: BP 168/99; PULSE 96; TEMP 37.2; O2SAT 92
[2017-12-15] MEDS: VANCOMYCIN INJ 1,500 MG in SODIUM CHLORIDE 0.9% 500ML 500 ML IV SCH ×2 (02:08→14:29)
[2017-12-15] MEDS: CEFTRIAXONE SOD INJ 1 GM in DEXTROSE 5% ADD-VANTAGE 50ML 50 ML IV SCH (05:51)
[2017-12-15] MEDS: HEPARIN SOD 5000 UNIT/0.5 ML CARP SQ SCH ×3 (06:31→20:27)
[2017-12-15 07:26] VITALS: BP 155/82; PULSE 93; TEMP 37; O2SAT 94
[2017-12-15] MEDS: NICOTINE 21 MG/24 HR TDSY TD SCH (08:14)
[2017-12-15] MEDS: INSULIN ASPART 100 UNITS/ML 3 ML PEN SC SCH ×4 (08:18→20:26)
[2017-12-15] MEDS: IBUPROFEN 200 MG TAB PO PRN ×2 (08:21→18:38)
--- NOTE | 2017-12-15 09:12 | Wound Consultation: Inpatient ---
Wound Consultation Date of Consultation: Dec 14, 2017. Attending Physician: Twin Evangelista MD, PhD Reason for Consultation: Abscess left ankle History of Present Illness Patient was recently admitted to the hospital yesterday for the ongoing treatment and management of an abscess with associated cellulitis to the left ankle. Patient states she developed swelling pain and redness in this area approximately a few weeks ago. Patient states she has been seen by multiple healthcare providers was recently placed on clindamycin. Patient states that the pain and swelling increased and she presented to the emergency department [facility] last evening. The abscess of the ankle was drained in the ER and a culture was obtained. Patient currently denies any increased pain in the area. Patient denies any fever chills or night sweats. Patient denies any chest pain shortness of breath abdominal discomfort nausea or vomiting. Patient states her blood sugars have been running in the 170 range. Patient denies any other systemic complaints. Family History Cancer Diabetes mellitus Hypertension Kidney disease Kidney stones Seizures Social History Smoking Status: Current Every Day Smoker Housing Status: lives with family Occupation Status: employed Allergies Coded Allergies: Penicillins (Verified Allergy, Unknown, Hives, 12/13/17) Home Medications Scheduled Clindamycin Hcl (Cleocin), 300 MG PO QID Inpatient Medications Current Inpatient Medications Medications (Trade) Dose Ordered Sig/Kodi Route Start Time Stop Time Status Last Admin Dose Admin Ceftriaxone Sodium 1 gm/ Dextrose 50 ml @ 100 mls/hr Q24H IV 12/14/17 05:00 12/24/17 04:59 12/15/17 05:51 100 MLS/HR Miscellaneous Information (Consult) 1 ea UD PRN N/A 12/13/17 20:45 01/12/18 20:44 Nicotine (Nicoderm Cq 21MG Patch) 1 patch QAM TD 12/14/17 08:00 01/13/18 08:59 12/15/17 08:14 1 PATCH Miscellaneous (Remove Nicoderm Patch) 1 ea HS N/A 12/14/17 22:00 01/13/18 21:59 12/14/17 21:20 1 EA Tramadol HCl (Ultram Tab) 50 mg Q4H PRN PO 12/13/17 20:45 01/12/18 20:44 12/14/17 05:50 50 MG Insulin Aspart (novoLOG ASPART) SLIDING SCALE G... ACHS SC 12/13/17 21:00 01/12/18 20:59 12/15/17 08:18 1 UNITS Heparin Sodium (Porcine) (Heparin Sq 5000 Unit/0.5ml) 5,000 unit Q8H SQ 12/13/17 22:00 01/12/18 21:59 12/15/17 06:31 5,000 UNIT Acetaminophen (Tylenol Tab) 650 mg Q4H PRN PO 12/13/17 20:45 01/12/18 20:44 12/13/17 23:52 650 MG Al Hydrox/Mg Hydrox/Simethicone (Maalox Max Susp) 15 ml Q4H PRN PO 12/13/17 20:45 01/12/18 20:44 Magnesium Hydroxide (Milk Of Magnesia Susp) 30 ml Q6H PRN PO 12/13/17 20:45 01/12/18 20:44 Polyethylene (Miralax Powder Packet) 17 gm DAILY PRN PO 12/13/17 20:45 01/12/18 20:44 Zolpidem Tartrate (Ambien Tab) 5 mg HSZ PRN PO 12/13/17 20:45 01/12/18 20:44 Ondansetron HCl (Zofran Inj) 4 mg Q6H PRN IV 12/13/17 20:45 01/12/18 20:44 Hydralazine HCl (HydrALAZINE INJ) 10 mg Q6H PRN IV. 12/14/17 13:00 01/13/18 12:59 Ibuprofen (Advil Tab) 400 mg TID PRN PO 12/14/17 13:00 01/13/18 12:59 12/15/17 08:21 400 MG Vancomycin HCl 1500 mg/Sodium Chloride 530 ml @ 200 mls/hr Q12H IV 12/15/17 02:00 12/25/17 01:59 12/15/17 02:08 200 MLS/HR Physical Exam Date Time Temp Pulse Resp B/P (MAP) Pulse Ox O2 Delivery O2 Flow Rate FiO2 12/15/17 07:26 37.0 93 18 155/82 (106) 94 Room Air 12/14/17 23:30 Room Air 12/14/17 23:14 37.2 96 18 168/99 (122) 92 Room Air 12/14/17 16:00 Room Air 12/14/17 15:19 36.8 102 18 154/85 (108) 95 General: The patient is lying in a hospital bed in no distress. Alert, cooperative and appropriate to all questions. HEENT: Pupils equal and reactive to light. Sclera clear, EOM intact. Neck: Supple, No JVD noted Chest: CTA in all c[place]. No deformity Heart: RRR without murmurs, S3, S4, thrills, rubs or heaves Extremities: An open wound site is noted in the left ankle lateral malleolus measuring 0.4 x 0.6 x 1.4 cm. There is no active drainage or odor from this site. There is periwound erythema and tenderness noted. No additional fluctuance is present. Full range of motion is noted. Distal neurovascular bundles intact. Pulses are +2. Neurological: Alert and oriented x3. No focal deficits. Skin: No rashes, papules, vesicles, excoriations Laboratory Results Last 24 Hours Test 12/14/17 11:26 12/14/17 13:47 12/14/17 13:48 12/14/17 16:17 Bedside Glucose 142 mg/dl 138 mg/dl Vancomycin Level Trough 20.4 mcg/ml Urine Opiates Screen POS Urine Methadone, Qualitative NEG Urine Barbiturates NEG Urine Phencyclidine (PCP) Level NEG Ur Amphetamine/Methamphetamine POS MDMA (Ecstasy) Screen NEG Urine Benzodiazepines Screen NEG Urine Cocaine Metabolite NEG Urine Marijuana (THC) NEG Test 12/14/17 20:26 12/15/17 07:42 12/15/17 08:38 Bedside Glucose 163 mg/dl 167 mg/dl Assessment & Plan Assessment: Abscess with associated cellulitis left ankle Plan: At this time no additional debridement is indicated. Site will continue to be managed with iodoform packing changed daily. Patient will continue to be monitored during her hospital course and reevaluated as needed. Patient will also be followed in the outpatient clinic.
[2017-12-15 09:32] LABS: CALCIUM 8.8 mg/dl (8.5-10.1); CREATININE 0.51 mg/dl (0.60-1.20); POTASSIUM 3.4 mmol/L (3.5-5.1)
[2017-12-15 16:06] VITALS: BP 140/80; PULSE 98; TEMP 36.9; O2SAT 100
--- NOTE | 2017-12-15 17:34 | Progress Note ---
Subjective Date of Service: Dec 15, 2017. Subjective Pt evaluation today including: conversation w/ patient, physical exam, chart review, lab review, review of studies, conversation w/ [employer] consultant, review of inpatient medication list Feeling okay, but still reported extremely tired and did not sleep well overnight, no spiking fever Problem List Medical Problems: (1) Abdominal pain Status: Acute (2) Back pain with radiation Status: Acute (3) Hyponatremia Status: Acute (4) Uncontrolled diabetes mellitus Status: Acute (5) Vomiting Status: Acute Review of Systems Constitutional: + weakness, + fatigue, No fever, No chills, No sweats, No weight loss, No problem reported Eyes: No worsening of vision, No eye pain, No redness, No discharge, No diplopia ENT: No hearing loss, No unusual epistaxis, No nasal symptoms, No sore throat, No tinnitus, No dental problems, No trouble swallowing Respiratory: No cough, No sputum, No wheezing, No shortness of breath, No dyspnea on exertion, No dyspnea at rest, No hemoptysis Cardiac: No chest pain, No orthopnea, No PND, No edema, No claudication, No palpitations Abdomen: No pain, No nausea, No vomiting, No diarrhea, No constipation Musculoskeletal: No joint pain, No muscle pain, No swelling, No calf pain Female : No dysuria, No urinary frequency, No hematuria, No incontinence, No abnormal vaginal bleeding, No vaginal discharge Neurologic: No memory loss, No paralysis, No weakness, No numbness/tingling, No vertigo, No balance problems Psychiatric: No depression symptoms, No anhedonism, No anxiety, No insomnia, No substance abuse Heme: No abnormal bleeding/bruising, No clotting problems, No swollen lymph nodes, No night sweats Endo: No fatigue, No excessive thirst, No excessive urination Skin: + rash (Which is much better than yesterday), No itch, No new/changing skin lesions, No color change, No bleeding Objective Vital Signs Date Time Temp Pulse Resp B/P (MAP) Pulse Ox O2 Delivery O2 Flow Rate FiO2 12/15/17 16:06 36.9 98 18 140/80 (100) 100 Room Air 12/15/17 16:00 Room Air 12/15/17 08:00 Room Air 12/15/17 07:26 37.0 93 18 155/82 (106) 94 Room Air 12/14/17 23:30 Room Air 12/14/17 23:14 37.2 96 18 168/99 (122) 92 Room Air Physical Exam General Appearance: WD/WN, no apparent distress, + obese, + pertinent finding ( Closing hair from the face) Eyes: normal inspection, PERRL, EOMI, sclerae normal ENT: normal ENT inspection, hearing grossly normal, pharynx normal Neck: supple, no adenopathy, thyroid normal, no JVD, no carotid bruits, trachea midline Respiratory/Chest: chest non-tender, normal breath sounds, no respiratory distress, no accessory muscle use, + decreased breath sounds Cardiovascular: regular rate, rhythm, no edema, no gallop, no JVD, no murmur Abdomen: normal bowel sounds, non tender, soft, no organomegaly, no pulsatile mass Extremities: normal range of motion, non-tender, normal inspection, no pedal edema, no calf tenderness, normal capillary refill, pelvis stable 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, no motor/sensory deficits, alert, normal mood/affect, oriented x 3 Skin: normal color, warm/dry, no rash Lymphatic: no adenopathy Laboratory Results Last 24 Hours Test 12/14/17 20:26 12/15/17 07:42 12/15/17 08:38 12/15/17 11:30 Bedside Glucose 163 mg/dl 167 mg/dl 150 mg/dl Sodium Level 131 mmol/L Potassium Level 3.4 mmol/L Chloride Level 97 mmol/L Carbon Dioxide Level 27 mmol/L Anion Gap 8.0 mmol/L Blood Urea Nitrogen 5 mg/dl Creatinine 0.51 mg/dl Est Creatinine Clear Calc Drug Dose 179.8 ml/min Estimated GFR () 136.5 Estimated GFR (Non- 117.8 BUN/Creatinine Ratio 9.1 Random Glucose 162 mg/dl Calcium Level 8.8 mg/dl Test 12/15/17 16:44 Bedside Glucose 155 mg/dl Assessment and Plan 42 y/o F admitted with LLE cellulitis and possible abscess s/p drainage, Left ankle and left lower extremity cellulitis and possible abscess s/p drainage , Surgeon Dr. Diego saw the patient, at this time no additional debridement is indicated. Continue iodoform packing changed daily, she also be followed in the outpatient clinic with Dr. Diego Was on Vanco and Rocephin, vancomycin discontinued because of wound culture grows strep, I feel Rocephin should be good enough, need to follow-up with culture and sensitivities and change to oral antibiotic possible UTI upon admission, culture was negative uncontrolled diabetic with A1c 8.9, hypertension and tobacco abuse disorder, diabetic education for blood glucose control, counselling to quit smoking, Drug screening because of " the patient look too lethargic "for unexplained reason patient drug scree shows positive opiates and amphetamine, however history denied any using illicit drug so be cautious on narcotic medicine use and cautious upon discharge Patient has hairs grow from the face, obesity BMI up to 39.6, has diabetic, she may have PCOS, I advised her to follow-up with his PCP, she agreed GI and DVT prophylaxis is covered, possible discharge in 1-2 days Continued [facility] stay due to: multiple IV medications needed Discharge planning: home
[2017-12-16 00:15] VITALS: BP 141/79; PULSE 85; TEMP 37.3; O2SAT 95
[2017-12-16] MEDS ORDERED: VANCOMYCIN TROUGH ONE (01:30)
[2017-12-16] MEDS: IBUPROFEN 200 MG TAB PO PRN ×2 (04:55→20:21)
[2017-12-16] MEDS: CEFTRIAXONE SOD INJ 1 GM in DEXTROSE 5% ADD-VANTAGE 50ML 50 ML IV SCH (04:55)
[2017-12-16] MEDS: HEPARIN SOD 5000 UNIT/0.5 ML CARP SQ SCH ×3 (05:02→20:35)
[2017-12-16] MEDS: INSULIN ASPART 100 UNITS/ML 3 ML PEN SC SCH ×4 (06:30→20:35)
[2017-12-16 07:09] LABS: HEMATOCRIT 32.5 % (37-47); HEMOGLOBIN 10.5 g/dL (12.0-16.0); MEAN CELL VOLUME 79.1 fL (80-100); MEAN CORPUSCULAR HEMOGLOBIN 25.5 pg (25-34); MEAN CORPUSCULAR HGB CONC 32.3 g/dl (32-36); MEAN PLATELET VOLUME 8.9 fL (7.4-10.4); PLATELET COUNT 469 K/uL (130-400); RED CELL DISTRIBUTION WIDTH CV 16.6 % (11.5-14.5)
[2017-12-16 07:26] LABS: CALCIUM 8.8 mg/dl (8.5-10.1); CREATININE 0.65 mg/dl (0.60-1.20)
[2017-12-16 07:32] VITALS: BP 130/76; PULSE 84; TEMP 36.9; O2SAT 94
[2017-12-16] MEDS: NICOTINE 21 MG/24 HR TDSY TD SCH (07:56)
[2017-12-16 15:27] VITALS: BP 134/78; PULSE 89; TEMP 37.2; O2SAT 98
[2017-12-16] MEDS: ACETAMINOPHEN 325 MG TAB PO PRN (21:19)
--- NOTE | 2017-12-17 00:03 | Progress Note ---
Subjective Date of Service: Dec 16, 2017. Subjective Pt evaluation today including: conversation w/ patient, conversation w/ family , physical exam, chart review, lab review, review of studies, review of inpatient medication list Voiding: no voiding problems Feeling much better, no acute events overnight, no spiking fever. Problem List Medical Problems: (1) Abdominal pain Status: Acute (2) Back pain with radiation Status: Acute (3) Hyponatremia Status: Acute (4) Uncontrolled diabetes mellitus Status: Acute (5) Vomiting Status: Acute Review of Systems All Other Systems: Reviewed and Negative Objective Vital Signs Date Time Temp Pulse Resp B/P (MAP) Pulse Ox O2 Delivery O2 Flow Rate FiO2 12/16/17 16:00 Room Air 12/16/17 15:27 37.2 89 20 134/78 (96) 98 Room Air 12/16/17 08:10 Room Air 12/16/17 07:32 36.9 84 20 130/76 (94) 94 Room Air 12/16/17 00:50 Room Air 12/16/17 00:15 37.3 85 18 141/79 (99) 95 Room Air Physical Exam Comments: General Appearance: WD/WN, no apparent distress, + obese, + pertinent finding ( Closing hair from the face) Eyes: normal inspection, PERRL, EOMI, sclerae normal ENT: normal ENT inspection, hearing grossly normal, pharynx normal Neck: supple, no adenopathy, thyroid normal, no JVD, no carotid bruits, trachea midline Respiratory/Chest: chest non-tender, normal breath sounds, no respiratory distress, no accessory muscle use, + decreased breath sounds Cardiovascular: regular rate, rhythm, no edema, no gallop, no JVD, no murmur Abdomen: normal bowel sounds, non tender, soft, no organomegaly, no pulsatile mass Extremities: normal range of motion, non-tender, normal inspection, no pedal edema, no calf tenderness, normal capillary refill, pelvis stable 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, no motor/sensory deficits, alert, normal mood/affect, oriented x 3 Skin: normal color, warm/dry, no rash Lymphatic: no adenopathy Laboratory Results Last 24 Hours Test 12/16/17 06:36 12/16/17 07:54 12/16/17 11:39 12/16/17 16:43 White Blood Count 11.40 K/uL Red Blood Count 4.11 M/uL Hemoglobin 10.5 g/dL Hematocrit 32.5 % Mean Corpuscular Volume 79.1 fL Mean Corpuscular Hemoglobin 25.5 pg Mean Corpuscular Hemoglobin Concent 32.3 g/dl RDW Standard Deviation 48.0 fL RDW Coefficient of Variation 16.6 % Platelet Count 469 K/uL Mean Platelet Volume 8.9 fL Sodium Level 133 mmol/L Potassium Level 3.0 mmol/L Chloride Level 99 mmol/L Carbon Dioxide Level 25 mmol/L Anion Gap 9.0 mmol/L Blood Urea Nitrogen 6 mg/dl Creatinine 0.65 mg/dl Est Creatinine Clear Calc Drug Dose 104.4 ml/min Estimated GFR () 126.0 Estimated GFR (Non- 108.7 BUN/Creatinine Ratio 9.3 Random Glucose 160 mg/dl Calcium Level 8.8 mg/dl Magnesium Level 2.0 mg/dl Bedside Glucose 149 mg/dl 247 mg/dl 130 mg/dl Test 12/16/17 20:14 Bedside Glucose 182 mg/dl Assessment and Plan 42 y/o F admitted with LLE cellulitis and possible abscess s/p drainage, Left ankle and left lower extremity cellulitis and possible abscess s/p drainage , Surgeon Dr. Diego saw the patient, at this time no additional debridement is indicated. Continue iodoform packing changed daily, she also be followed in the outpatient clinic with Dr. Diego initally on Vanco and Rocephin, vancomycin discontinued. need to follow-up with culture and sensitivities and change to oral antibiotic possible UTI upon admission, culture were negative uncontrolled diabetic with A1c 8.9, hypertension and tobacco abuse disorder, diabetic education for blood glucose control, counselling to quit smoking, Drug screening-- positive opiates and amphetamine, however history denied any using illicit drug so be cautious on narcotic medicine use and cautious upon discharge GI and DVT prophylaxis is covered, possible discharge in 1-2 days Continued [facility] stay due to: multiple IV medications needed Discharge planning: home
[2017-12-17 00:33] VITALS: BP 121/64; PULSE 74; TEMP 36.9; O2SAT 95
[2017-12-17] MEDS: CEFTRIAXONE SOD INJ 1 GM in DEXTROSE 5% ADD-VANTAGE 50ML 50 ML IV SCH (06:03)
[2017-12-17] MEDS: HEPARIN SOD 5000 UNIT/0.5 ML CARP SQ SCH ×2 (06:04→13:01)
[2017-12-17] MEDS: TRAMADOL HCL 50 MG TAB PO PRN (06:22)
[2017-12-17 07:34] VITALS: BP 167/90; PULSE 75; TEMP 36.7; O2SAT 98
[2017-12-17 07:56] LABS: CALCIUM 9.2 mg/dl (8.5-10.1); CREATININE 0.61 mg/dl (0.60-1.20); POTASSIUM 3.3 mmol/L (3.5-5.1)
[2017-12-17] MEDS: NICOTINE 21 MG/24 HR TDSY TD SCH (08:00)
[2017-12-17] MEDS: IBUPROFEN 200 MG TAB PO PRN (08:25)
[2017-12-17] MEDS: INSULIN ASPART 100 UNITS/ML 3 ML PEN SC SCH ×2 (08:36→12:31)
[2017-12-17] MEDS ORDERED: AMOX875T PO (12:08)
[2017-12-17] MEDS ORDERED: ULT50X PO (12:08)
--- NOTE | 2017-12-17 12:09 | Discharge Instructions ---
Discharge Instructions Date of Service Dec 17, 2017. Admission Reason for Admission: Cellulitis And Abscess Of Left Lower Extremity Discharge Discharge Diagnosis / Problem: Cellulitis And Abscess Of Left Lower Extremity Discharge Goals Goal(s): Decrease discomfort, Improve function, Increase independence, Improve disease control, Learn about illness, Diagnostic testing Activity Recommendations Activity Limitations: resume your previous activity . Current Hospital Diet Patient's current hospital diet: Diabetes Type 2 Diet Discharge Diet Recommended Diet: Regular Diet Procedures Procedures Performed: none Pending Studies Studies pending at discharge: no Laboratory Results Hemoglobin A1c Test 12/13/17 16:50 Range/Units Estimated Average Glucose 209 mg/dl Hemoglobin A1c 8.9 H 4.5-5.6 % Medical Emergencies . Who to Call and When: Medical Emergencies: If at any time you feel your situation is an emergency, please call 911 immediately. . Non-Emergent Contact Non-Emergency issues call your: Primary Care Provider Call Non-Emergent contact if: you have a fever, your pain is worsening . . "Provider Documentation" section prepared by Carol Dixon .
--- NOTE | 2017-12-17 12:19 | Discharge Summary ---
Discharge Summary Date of Service Dec 17, 2017. Discharge Summary Admission Date: Dec 13, 2017 at 20:46 Discharge Date: Dec 17, 2017 Discharge Disposition: Home Principal Diagnosis: Cellulitis And Abscess Of Left Lower Extremity Procedures: None Consultations: Wound Medication Reconciliation New Medications: Amoxicillin & Pot Clavulanate (Augmentin 875-125 mg) 1 Tab Tab 1 TAB PO BID for 5 Days, #10 TAB Tramadol HCl (Tramadol HCl) 50 Mg Tab 50 MG PO Q12 PRN for Pain, #14 TAB Discontinued Medications: Clindamycin Hcl (Cleocin) 300 Mg Cap 300 MG PO QID X 7 DAYS. FILLED 12/11/17, PER [facility] Referrals At Discharge Follow up Referrals: Family Practice Referral - Within 1-2 Weeks with Lydia Leon, DO Discharge Exam Patient is seen and examined by me. Pt denies cp, sob, dizziness,palpitation and loss of consciousness. Pt leg swelling almost resolved. Physical Exam: General Appearance: WD/WN, no apparent distress Eyes: EOMI Neck: supple Respiratory/Chest: lungs clear, normal breath sounds, no respiratory distress Cardiovascular: regular rate, rhythm, no murmur Abdomen / GI: normal bowel sounds, non tender, soft Extremities: normal inspection, no pedal edema, normal range of motion Neurologic/Psychiatric: alert, normal mood/affect, oriented x 3 Skin: no rash Lymphatic: no adenopathy Hospital Course 42 y/o F admitted with LLE cellulitis and possible abscess s/p drainage, Left ankle and left lower extremity cellulitis and possible abscess s/p drainage , Surgeon Dr. Diego saw the patient, at this time no additional debridement is indicated. Continue iodoform packing changed daily, she also be followed in the outpatient clinic with Dr. Diego initally on Vanco and Rocephin, vancomycin discontinued. need to follow-up with culture and sensitivities and change to oral antibiotic Pt swelling almost resolved, pain is well controlled, ambulating very well. Pt is ready to go home. Pt seem not allergic to penicillin since she is on Rocephin for past 5 days. We will give Augmentin based on sensitivity for another ten days to complete the course. for breakthrough pain tramadol. possible UTI upon admission, culture were negative uncontrolled diabetic with A1c 8.9, hypertension and tobacco abuse disorder, diabetic education for blood glucose control, counselling to quit smoking, Drug screening-- positive opiates and amphetamine, however history denied any using illicit drug so be cautious on narcotic medicine use and cautious upon discharge Total Time Spent: Greater than 30 minutes This includes examination of the patient, discharge planning, medication reconciliation, and communication with other providers. Discharge Instructions Please refer to the electronic Patient Visit Report (Discharge Instructions) for additional information. Follow-Up primary care Additional Copies To Lydia Leon DO
[2017-12-17] MEDS ORDERED: NURSING VERBAL MED ORDER STA (14:16)
[2017-12-17] MEDS ORDERED: PROMETHAZINE HCL INJ 25 MG in SODIUM CHLORIDE 0.9% 50ML 50 ML IV SCH (14:30)
[2017-12-17 14:37] VITALS: BP 167/90; PULSE 75; TEMP 36.7; O2SAT 98
== END 2017-12-17 15:25 | disposition home or self-care (01) | DRG 603 ==
LOC: EDBD 16:08 → C.EDB 16:09 → C.MS4W 20:46 → ENRESERV 21:06
PROVIDERS: ADMIT Internal Medicine; ATTEND Hospitalist
PROC: 0J9P3ZZ Drainage of Left Lower Leg Subcutaneous Tissue and Fascia, Percutaneous Approach (ICD-10-PCS; principal; 2017-12-13)
DX: L03.116 Cellulitis of left lower limb (principal); E87.0 Hyperosmolality and hypernatremia; L02.416 Cutaneous abscess of left lower limb; B95.1 Streptococcus, group B, as the cause of diseases classified elsewhere; E11.65 Type 2 diabetes mellitus with hyperglycemia; R82.99 Other abnormal findings in urine; I10 Essential (primary) hypertension; F17.200 Nicotine dependence, unspecified, uncomplicated; E66.9 Obesity, unspecified; Z51.81 Encounter for therapeutic drug level monitoring; Z91.14 Patient's other noncompliance with medication regimen; Z68.39 Body mass index [BMI] 39.0-39.9, adult; Z88.0 Allergy status to penicillin; Z83.3 Family history of diabetes mellitus; Z82.49 Family history of ischemic heart disease and other diseases of the circulatory system; Z84.1 Family history of disorders of kidney and ureter; Z84.89 Family history of other specified conditions